=== PATIENT | female | born 1970 | race Caucasian/White ===

== ENCOUNTER 2021-03-05 14:01 | Outpatient (REF) | payer BC, SELFPAY ==
[2021-03-05 15:29] LABS: COVID-19 Test Negative (Negative)
== END 2021-03-05 14:02 | disposition home or self-care (01) ==
LOC: HO.LAB 14:01
PROVIDERS: Visit Provider Internal Medicine
DX: Z20.822 Contact with and (suspected) exposure to COVID-19 (principal)
CPT/HCPCS: 36415; 87635; C9803

== ENCOUNTER 2025-01-28 14:06 | Outpatient (AMB) | payer BC, SELFPAY ==
--- NOTE | 2025-01-28 14:12 | A.PHYSOV ---
Vital Signs 01/28/25 14:13 Height 5 ft Weight 125 lb BMI 24.4 Intake Visit Reasons: NPV Mirian Ref- chronic b/l thoracic back pain Intake Note: Patient is a 34 year old female here for new patient visit. Patient is being referred for chronic thoracic back pain. Human Resource Analyst Required: No Allergies Penicillins Allergy (Unknown, Verified 01/28/25 14:17) Unknown Sulfa (Sulfonamide Antibiotics) Allergy (Unknown, Verified 01/28/25 14:17) Unknown sulfamethoxazole (From Bactrim) Allergy (Unknown, Verified 01/28/25 14:17) Unknown trimethoprim (From Bactrim) Allergy (Unknown, Verified 01/28/25 14:17) Unknown HPI Comments Details: History of Present Illness The patient is a 54 year old individual presenting for evaluation of chronic back pain. The patient reports the onset of constant, central back pain since at least June, with no prior history of back problems or injury. The patient speculates that recent weight gain or poor posture while sitting on the couch for extended periods may have contributed to the pain. Pain is reported to improve with activity such as bike riding and walking. The patient has tried using a heating pad, Aleve, Advil, and a new firm mattress with persistent symptoms. The primary care provider prescribed a muscle relaxer, which the patient uses sparingly on weekends and finds helpful in conjunction with heat and a topical gel. Previous workup includes a spinal X-ray which was negative and an MRI that showed a disc bulge. The patient also underwent over a month of physical therapy, which provided temporary relief for a couple of days at a time, and received dry needling on a couple of occasions, which also seemed to alleviate symptoms somewhat. I reviewed the referring provider's no prior to consultation. Pain Description - Onset: The pain started prior to or during June and has been constant since. - Location: The pain is primarily located in the central back, sometimes felt slightly to the left. - Character: The pain is described as constant. - Aggravating factors: The patient reports increased pain with twisting. - Relieving factors: Movement, such as bike riding and walking, provides relief. - Associated factors: The patient has tried heat, Aleve, and a muscle relaxer with some effect; dry needling also provided some relief. [facility] Social History (Updated 01/28/25 @ 14:19 by Christine Jackson MA) Alcohol intake: current Alcohol intake frequency: a few times a week Alcohol type: wine Patient Tobacco Use Status: Never used Tobacco Review of Systems Narrative Review of Systems - Musculoskeletal: Reports constant central back pain. - General: Denies any other significant health issues, stating the patient has been relatively really healthy. Physical Exam Exam Exam: Physical Exam Cervical Spine: Nontender to palpation. Full range of motion. Thoracic spine: She is tender to the left paraspinal musculature with hypertrophy of the left side as opposed to the right. She has full range of motion of the thoracic spine her chest rises and falls symmetrically. No scapular winging. Special Tests: Axial Compression test: Negative Spurlings test: Negative Lhermitte's sign is Negative Upper Extremities: Neuro: Sensation: Intact to upper extremities bilateral to light touch Strength C5 (Elbow Flexion): 5/5 on the left and 5/5 on the right. C6 (Elbow Ext): 5/5 on the left and 5/5 on the right. C7 (Elbow Ext): 5/5 on the left and 5/5 on the right. C8 (Finger Flex): 5/5 on the left and 5/5 on the right. T1 (Finger Abd/Add): 5/5 on the left and 5/5 on the right. DTR: C5 (Biceps): Left 2 Right 2 C6 (Brachioradialis): Left 2 Right 2 C7 (Triceps): Left 2 Right 2 Cherry sign: Negative No pathologic clonus. No involuntary movement. Vital Signs: BMI result Body Mass Index 24.4 Assessment & Plan Assessment & Plan (1) Thoracic radiculopathy: Code(s): M54.14 - Radiculopathy, thoracic region Category: Medical (2) Myalgia: Code(s): M79.10 - Myalgia, unspecified site Category: Medical Plan Pain Management - Affect: The patient reports the persistence of the back pain has been surprising and has stopped me in my tracks a little bit. - Analgesia: The patient uses kxra-nwc-jwhdyqw medications such as Aleve and Advil, as well as a prescription muscle relaxer, which is taken infrequently (e.g., on a Sunday night) to help with sleep and relaxation. - Activities of Daily Living: The pain is constant, but the patient remains relatively active, noting that movement like walking and bike riding is beneficial. - Aberrant Drug Related Behaviors: The patient expresses a dislike for taking prescription medications and uses the prescribed muscle relaxer sparingly. Plan Patient was informed and verbally consented to the use of an ambient scribe for clinic note documentation during this visit. 1. Thoracic Back Pain The patient's chronic thoracic back pain is likely multifactorial, potentially stemming from myofascial pain secondary to scoliosis and a disc bulge at T8-T9. Two procedural options were discussed: a trigger point injection for muscular pain and an epidural steroid injection for disc-related pain. Given that the patient experienced some relief with dry needling, a trigger point injection was recommended as the less invasive initial approach. The patient agreed to this plan but opted to schedule the procedure for a later date to avoid post-injection soreness during the . She will follow-up at an appropriate interval. Continue her home exercise plan. We discussed the benefits of proper nutrition and exercise to maintain a healthy body weight to improve longevity and function. We also discussed the benefits of proper lifting techniques, core strengthening and proper posture. Thank you for allowing me to participate in the care of your patient. Coding Level of Care Code Tele New Pt Level 3 (43272) Diagnoses Thoracic radiculopathy M54.14 Myalgia M79.10
[2025-01-28 14:13] VITALS: BMI 24.4
--- OUTSIDE RECORDS SUMMARY | 2025-01-28 17:07 | XMS_ITS | Clinical Summary ---
Author Organization [facility] Address [address] [place] [phone] Phone Care Team Providers Care Manager Product Design Name Role Phone Kaela Mcfarland MD Primary Care Prov ider Allergies Active Allergy Reactions Criticality Noted Date Comments Sulfamethoxazole-Trimethoprim 2022 Penicillins 08/31/2022 Sulfa (Sulfonamide Antibiotics) 08/04 Medications lisinopril (PRINIVIL,ZESTRI L) 5 MG tablet Take 5 mg by mouth daily. Active albuterol 90 mcg/actuation inhaler Inhale 2 puffs into the lungs every 6 (six) hours as needed. 8.5 g 08/31/2022 Active Social History Tobacco Use Types Packs/Day Years Used Date Smoking Tobacco: Never Smokeless Tobacco: Never Education Answer Date Recorded Are you interested in more education? Not on vishnu e 08/31/2022 Are you concerned about learning? Not on file 08/31/2022 No 08/31/2022 No 08/31/2022 Digital Access Answer Date Recorded No 08/31/2022 No 08/31/2022 Reliable internet access at home? Not on file 08/31/2022 Device with a working camera? Not on file Comments Unknown Sex and Gender Information Value Date Recorded Sex Assigned at Not on file Legal Sex Female 9:37 AM EDT Gender Identity Not on file Sexual Orientation Not on file Last Filed Vital Signs Vital Sign Reading Time Taken Comments Blood Pressure 125/84 08/31/2022 9:58 AM EDT Pulse 78 08/31/2022 9:58 AM EDT Temperature 36.9 C (98.5 F) 08/31/2022 9:58 AM EDT Respiratory Rate 16 08/31/2022 9:58 AM EDT Oxygen Saturation 98% 08/31/2022 9:58 AM EDT Inhaled Oxygen Concentration - - Weight 57.3 kg (126 lb 6.4 oz) 08/31/2022 9:58 A M EDT Height 154.9 cm (5' 1 ) 08/31/2022 9:58 AM EDT Body Mass Index 23.88 08/31/2022 9:58 AM EDT Plan of Treatment Health Maintenance Due Date Last Done Comments CREATININE LEVEL 1968 LIPID PANEL 1968 POTASSIUM LEVEL 1968 DEPRESSION SCREENING 1980 HEPATITIS C SCREENING 1986 HIV ONE-TIME SCREENING (18-6 5 YEARS) 1986 PAP SMEAR 1989 MAMMOGRAM 2008 COLOGUARD 2013 COLONOSCOPY 2013 COLORECTAL CANCER SCREENING 2013 FIT TEST 2013 FOBT 2013 SIGMOIDOSCOPY 2013 VIRTUAL COLONOSCOPY 2013 PNEUMOCOCCAL VACCINES (50+ years) (1 of 1 - PCV) 2018 ZOSTER VACCINES (1 of 2) 2018 INFLUENZA VACCINE (#1) 2024 COVID-19 VACCINE (2024-2 6 season) 2024 12/22/2020, 06/05/2020, 05/15/2020 Adult Td,Tdap Booster 08/04/2025 08/05/2015 , 06/01/2010 RSV VACCINE (1 - 1-dose 75+ series) 2043 SMOKING STATUS SCREENING (On ce After 26 Yrs) Completed 08/31/2022 HEPATITIS A VACCINES Aged Out No long er eligible based on patient's age to complete this topic HIB VACCINES Aged Out No longer eligi ble based on patient's age to complete this topic MENINGOCOCCAL VACCINES (ACWY) Aged Out No longer eligible based on patient's age to complete this topic MENINGOCOCCAL VACCINES (B) Aged Out N o longer eligible based on patient's age to complete this topic Medical Devices Not on file Insurance BLUE CROSS OUT OF STATE PPO BLUE CROSS OUT OF STATE PPO BLUE CROSS OUT OF STATE PPO BLUE CROSS OUT OF STATE PPO BLUE CROSS OUT OF STATE PPO BLUE CROSS OUT OF STATE PPO Care Teams Manager Product Design Relationship Specialty Start Date End Date Kaela Mcfarland MD [address] [place] [phone] PCP - General Internal Medicine 08/31/22 Additional Source Comments The information contained in this document represents components of the legal health record. It is not the complete legal health record.[facility]
--- OUTSIDE RECORDS SUMMARY | 2025-01-28 17:07 | XMS_ITS | Clinical Summary ---
Author Organization [employer] Address [address] [place] [address] Care Team Providers Care Iron Setter Name Role Phone Unavailable Primary Care Provider Unavailabl e Allergies Active Allergy Reactions Criticality Noted Date Comments Penicillins Rash Low 08/31/2022 Sulfa Antibiotics Rash Low 08/31/2022 Sulfamethoxazole-Trimethoprim Rash Low 2022 Medications lisinopril 5 MG tablet Take 5 mg by mouth Once per day. Active albuterol 108 (90 Base) MCG/ACT inhaler Inhale 2 puffs every 6 (six) hours if needed. 08/31/2022 Active Active Problems Problem Noted Date Diagnosed Date Primary hypertension 12/03/2023 Immunizations Immunization Administration Dates Next Due TD (adult), 2 Lf tetanus tox oid, preservative free, adsorbed 08/05/2015 Tdap 06/01/2010 Social History Tobacco Use Types Packs/Day Years Used Date Smoking Tobacco: Never Smokeless Tobacco: Never Tobacco Cessation:Counseling Given: Not Answered Alcohol Use Standard Drinks/Week Comments Yes 4 (1 standard drink = 0.6 oz pur e alcohol) on weekends Education Answer Date Recorded What is the highest level of school you have completed or the highest degree you have received? Master's degree (e.g., MA, MS, Flavia, MEd, FINANCIAL REPORTING DIRECTOR, FELIBERTO) 12/03/2023 Comments Unknown Sex and Gender Information Value Date Recorded Sex Assigned at Female 12/03/2023 8:21 AM EDT Legal Sex Female 8:33 PM EDT Gender Identity Female 12/03/2023 8:21 AM EDT Sexual Orientation Choose not to disclose 2023 8:28 AM EDT Occupation Industry Job Start Date Job End Date Teacher Not on file Not on file Not on file Last Filed Vital Signs Vital Sign Reading Time Taken Comments Blood Pressure 132/86 12/03/2023 8:23 AM EDT Pulse 105 12/03/2023 8:23 AM EDT Temperature 36.9 C (98.4 F) 12/03/2023 8:23 AM EDT Respiratory Rate 18 12/03/2023 8:23 AM EDT Oxygen Saturation 99% 12/03/2023 8:23 AM EDT Inhaled Oxygen Concentration - - Weight 57.2 kg (126 lb) 12/03/2023 8:23 AM EDT Height 152.4 cm (5') 12/03/2023 8:23 AM EDT Body Mass Index 24.61 12/03/2023 8:23 AM EDT Plan of Treatment Health Maintenance Due Date Last Done Comments CT Colonography 1968 Colonoscopy 1968 Colorectal Cancer Screening 1968 Depression Screening 1968 FIT DNA/Cologuard 1968 FIT 1968 FOBT 1968 HIV Screening 1968 Lipid Panel 1968 SDOH Screening 1968 Sigmoidoscopy 1968 Disability Screening 1968 Alcohol/Substance Use Screening 1980 Hepatitis C Screening 1986 Hepatitis B Vaccines (1 of 3 - 19+ 3-dose series) 1987 Pap Smear 1989 Cervical Cancer Screening 1998 HPV/Cotest 1998 Mammogram 2008 Pneumococcal Vaccine: 50+ Years (1 of 1 - PCV) 2018 Zoster Vaccines (1 of 2) 2018 COVID-19 Vaccine (4 - 2024-2 6 season) 2024 12/22/2020, 06/05/2020, 05/15/2020 Influenza Vaccine (#1) 2024 Tobacco Screening 12/02/2024 12/03/2023 DTaP/Tdap/Td Vaccines (3 - T d or Tdap) 08/04/2025 08/05/2015, 06/01/2010 RSV Patients and Patients Aged 60 years or older (1 - 1-dose 75+ series) 2043 HIB Vaccines Aged Out No longer eligi ble based on patient's age to complete this topic HPV Vaccines Aged Out No longer eligi ble based on patient's age to complete this topic Hepatitis A Vaccines Aged Out No long er eligible based on patient's age to complete this topic IPV Vaccines Aged Out No longer eligi ble based on patient's age to complete this topic Meningococcal B Vaccine Aged Out No l onger eligible based on patient's age to complete this topic Meningococcal Vaccine Aged Out No andi nitza eligible based on patient's age to complete this topic RSV under 20 months Aged Out No longe r eligible based on patient's age to complete this topic Rotavirus Vaccines Aged Out No longer eligible based on patient's age to complete this topic Insurance BS PPO Care Teams Iron Setter Relationship Specialty Start Date End Date [facility] [address] [place] [id number] Primary Care Provider 12/03/23
== END 2025-01-28 14:36 | disposition home or self-care (01) ==
LOC: HO.HPHYS 14:06
PROVIDERS: PCP Internal Medicine; Visit Provider Physician Assistant
DX: M54.14 Radiculopathy, thoracic region (principal); M79.10 Myalgia, unspecified site
CPT/HCPCS: 99203

== ENCOUNTER 2025-02-18 14:51 | Outpatient (AMB) | payer BC, SELFPAY ==
[2025-02-18 14:55] VITALS: BMI 23.4
--- NOTE | 2025-02-18 14:55 | A.PHYSOV ---
Vital Signs 02/18/25 14:55 Height 5 ft Weight 120 lb BMI 23.4 Intake Visit Reasons: Trigger point injections Intake Note: Patient is a 54 year old female here for Trigger point injections. Windsmith Required: No Allergies Penicillins Allergy (Unknown, Verified 02/18/25 15:00) Unknown Sulfa (Sulfonamide Antibiotics) Allergy (Unknown, Verified 02/18/25 15:00) Unknown sulfamethoxazole (From Bactrim) Allergy (Unknown, Verified 02/18/25 15:00) Unknown trimethoprim (From Bactrim) Allergy (Unknown, Verified 02/18/25 15:00) Unknown [facility] Social History Alcohol intake: current Alcohol intake frequency: a few times a week Alcohol type: wine Patient Tobacco Use Status: Never used Tobacco Physical Exam Vital Signs: BMI result Body Mass Index 23.4 Office Procedures AMB Trigger Point Inject - Phy Therapeutic Injection Details: Trigger point injection left thoracic paraspinal musculature x2 : Patient was educated about the risks, complications and benefits of trigger point injection. Risks and complications include infection, nerve damage, bleeding, collapsed lung. After discussing these risks complications and benefits the patient is eager to proceed. The patient's left thoracic paraspinal muscle spasm was marked cleansed with an alcohol prep. 1 mL of 1% lidocaine was injected into the trigger point with needling. Patient tolerated the procedure well without immediate complication. The procedure was repeated on the 2nd trigger point in the same area. [id number] Point Injection 1 or 2 sites All charges added?: Procedure code (CPT) selection complete Office Meds lidocaine (PF) 20 mg/mL (2 %) injection solution Performing Provider: DOROTHY Nunes Performing Location: [facility] Administered by: DOROTHY Nunes on 02/18/25 17:08 Dose Route Admin Location Dispensed Lot Number Expiration Date [facility] Adjunct Trainer 20 mg IM 5 mL [id number] [facility] Total Dispensed Waste 5 mL 80 % Assessment & Plan Assessment & Plan (1) Myalgia: Code(s): M79.10 - Myalgia, unspecified site Category: Medical Plan Ms. Pearson is a 54-year-old female seen in evaluation today for thoracic paraspinal muscle spasm. Today she consented to trigger point injection x2. She was given post-injection instructions, recommend: Moist heat compresses for 15 minutes up to 5 times daily. Continue thoracic strengthening. If her symptoms do not markedly improved she may benefit from left-sided thoracic facet injection. Patient will contact our office if she would like to proceed. Thank you for allowing me to participate in the care of your patient. Orders: Orders AMB Trigger Point Injection - Physiatry Today M79.10 - Myalgia, unspecified site Coding Level of Care Code Procedure Only Diagnoses Myalgia M79.10 CPT Codes Therapeutic Injection - Ther Injection 1: [id number] Point Injection 1 or 2 sites ([id number])
--- OUTSIDE RECORDS SUMMARY | 2025-02-18 19:47 | XMS_ITS | Clinical Summary ---
Author Organization [facility] Address [address] [facility] [address] [place] [phone] Phone Care Team Providers Care Resources Representative Name Role Phone Kaela Donovan MD Primary Care Prov ider Allergies Active [...] 2018 INFLUENZA VACCINE (#1) 2024 COVID-19 VACCINE ( - 2024-2 6 season) 2024 12/22/2020, 06/05/2020, 05/15/2020 Adult [...] CROSS OUT OF STATE PPO Care Teams Resources Representative Relationship Specialty Start Date End Date Kaela Donovan MD [address] [place] [address] PCP - General Internal Medicine 08/31/22 Additional Source Comments The information contained in this document represents components of the legal health record. It is not the complete legal health record.[facility]
--- OUTSIDE RECORDS SUMMARY | 2025-02-18 19:47 | XMS_ITS | Clinical Summary ---
Author Organization [address] Address [address] [place] [phone] Phone Care Team Providers Care Cable Ferryboat Operator Name Role Phone Kaela Donovan MD Primary Care Prov ider Allergies Active Allergy Reactions Criticality Noted Date Comments Penicillins Medium 06/01/2010 Other Reaction(s): Rash/Dermatitis Sulfa (Sulfonamide Antibiotics) Medium 06/01/2010 Other Reaction(s): Rash/Dermatitis Sulfamethoxazole-Trimethopri m 07/05/2011 Medications lisinopriL (PRINIVIL,ZESTR IL) 10 mg tablet Take 1 tablet (10 mg total) by mouth 1 (one) time each day. 90 each 1 5 Active lisinopriL (PRINIVIL,ZESTR IL) 10 mg tablet Take 1 tablet (10 mg total) by mouth 1 (one) time each day. 90 each 5 02/06/20 25 Discontinu ed(Reorder ) Active Problems Problem Noted Date Diagnosed Date Chronic bilateral thoracic back pain 12/16/2024 Assessment & Plan (12/16/2024 9:19 AM EDT): Patient is encouraged to walk and return to their daily activity as soon as possible. Imaging studies were sent as shown. At this time patient is not experiencing any issues with bowels or bladder function. Patient is advised to continue back exercises. She completed PT with no improvement. Given a prescription for cyclobenzaprine, possible side effects discussed today. Orders: MR Thoracic Spine wo Contrast; Future Hyperlipidemia 09/20/2023 Abnormal mammogram 04/26/2023 Overview (04/26/2023): ? cysts left breast Family history of primary IgA nephropathy 2023 History of kidney stones 04/26/2023 History of COVID-19 02/10/2023 Overview (04/26/2023): second time having COVID 01/13/2022 Elevated alkaline phosphatase level 12/11/2016 Essential hypertension 08/26/2015 Assessment & Plan (12/16/2024 9:19 AM EDT): Currently on Lisinopril 5mg, however BP today elevated. Will increase the dose to 10mg and follow up in one month. Low salt recommended. Assessment & Plan (09/25/2024 4:26 PM EDT): Well controlled, today 120/80. Patient is compliant with her medication. Encouraged to follow a healthy diet, and exercise regularly. We will continue lisinopril 5mg a day. She has pending repeat CMP and lipid panel. Assessment & Plan (03/27/2024 1:53 PM EST): Well controlled, today 128/82. Patient is compliant with her medication. Encouraged to follow a healthy diet, and exercise regularly. We will continue 5mg a day. We will check a CMP and lipid profile before her next visit. Orders: Comprehensive metabolic panel; Future Lipid panel with reflex to direct LDL; Future Encounters Date Type Department Care Team Description 02/05/2025 1:15 PM EST Office Visit [address] [phone] Acacia Ballard PA Essential hypertension (Primary Dx); Pure hypercholesterolemia 01/02/2025 Results Follow-Up Adult Medicine [address] [phone] Kaela Sullivan MD 12/28/2024 7:06 AM EDT - 12/28/2024 11:59 PM EDT [facility] [address] [place] [address] Chronic bilateral thoracic back pain Discharge Disposition: Home or Self Care 12/16/2024 8:30 AM EDT Office Visit [address] [phone] Kaela Sullivan MD Chronic bilateral thoracic back pain (Primary Dx); Essential hypertension 12/10/2024 4:00 PM EDT Treatment Outpatient [address] [phone] Zuleyma Leal, LIBRARY CLERICAL ASSISTANT Chronic bilateral thoracic back pain (Primary Dx) 12/04/2024 4:00 PM EDT Treatment Outpatient [address] [phone] Julio Correa, PT Chronic bilateral thoracic back pain (Primary Dx) 12/01/2024 4:00 PM EDT Treatment Outpatient [address] [phone] Zuleyma Leal, LIBRARY CLERICAL ASSISTANT Chronic bilateral thoracic back pain (Primary Dx) 11/27/2024 4:00 PM EDT Treatment Outpatient [address] [phone] Julio Correa, PT Chronic bilateral thoracic back pain (Primary Dx) 11/24/2024 4:00 PM EDT Treatment Outpatient [address] [phone] Julio Correa, PT Chronic bilateral thoracic back pain (Primary Dx) 11/20/2024 4:00 PM EDT Treatment Outpatient Rehabilitation [address] [phone] Azalea Christopher PTA Chronic bilateral thoracic back pain (Primary Dx) from Last 3 Months Immunizations Immunization Administration Dates Next Due Pneumococcal conjugate 20 va lent (Prevnar 20, PCV 20) 2mo and older 09/24/2024 Td Tetanus diptheria (Tdvax) 7yo and older 08/04 Tdap Tetanus diptheria acell ular pertussis (Boostrix; Adacel) 7yo and older 06/01/2010 Surgical History Surgery Date Site/Laterality Comments KIDNEY STONE SURGERY PROCEDURE: DC NEPHROLITHOTOMY REMOVAL CALCULUS; COMMENT: Dr. Camara VARICOSE VEIN SURGERY 2015 PROCEDURE: DC LIGJ DIVJ &/EXCJ VARICOSE VEIN CLUSTER 1 LEG; COMMENT: Dr Wade ENDOMETRIAL ABLATION 10/09/2018 PROCEDURE: DC ENDOMETRIAL ABLTJ THERMAL W/O HYSTEROSCOPIC GUID Medical History Medical History Date Comments Pneumonia 12/03/2008 DX:Pneumonia; CO MMENT: secondary to influenza. Hospitalized at [facility]. UTI (lower urinary tract infection) 12/03/2008 DX:UTI (lower urinary tract infection); COMMENT: during pneumonia. Sepsis, unspecified 12/03/2008 DX:Sepsis, u nspecified; COMMENT: secondary to pneumonia. Hospitalized at [facility]. Abnormal mammogram DX:Abnormal m ammogram; COMMENT: ? cysts left breast Varicosities DX:Varicosities History of COVID-19 02/10/2023 DX:History o f COVID-19; COMMENT: second time having COVID 01/13/2022 Family History Medical History Relation Name Comments Hypertension Brother 1 Other: iga nephropathy Daughter 1 Prostate cancer Father mets now 67, Macular degeneration Mother Glaucoma Paternal Grandmother Relation Name Status Comments Brother 1 Brother 2 Alive Elvin 44 Brother 3 Alive Christopher 40 Daughter 1 Alive Becky 13 Daughter 2 Alive Ludy 10 Father Mother Alive Paternal Grandmother Social History Tobacco Use Types Packs/Day Years Used Date Smoking Tobacco: Never Smokeless Tobacco: Never Tobacco Cessation:Counseling Given: Not Answered Alcohol Use Standard Drinks/Week Comments Yes 0 (1 standard drink = 0.6 oz pur e alcohol) Housing Instability Answer Date Recorde d Are you worried that in the next 2 months you may not have stable housing? No 02/05/2025 Food Access & Nutrition Answer Date Rec orded Do you have access to a vari ety of food including fruits and vegetables? Yes 02/05/2025 Access to Healthcare Answer Date Record ed Within the last 3 months, ho w many times did you visit the emergency department for your medical care? 0 03/27/2024 Health Literacy Answer Date Recorded How often do you need to hav e someone help you when you read instructions, pamphlets, or other written material from your doctor or pharmacy? Never 02/05/2025 Caregiver: How often do you need to have someone help you when you read instructions, pamphlets, or other written material from your doctor or pharmacy? Not on file 02/05/2025 Financial Risk Answer Date Recorded How hard is it for you to pa y for the very basics like food, housing, medical care, and air conditioning / heating? Not very hard 02/05/2025 Transportation Answer Date Recorded Has the lack of transportati on kept you from meetings, work, or from getting things needed for daily living? No Has the lack of transportati on kept you from medical appointments or from getting medications? No 02/05/2025 Social Isolation Answer Date Recorded How often do you feel lonely or isolated from th ose around you? Never 02/05/2025 Food Risk Answer Date Recorded Within the past 12 months we worried whether our food would run out before we got money to buy more. Never true 03/27/2024 Within the past 12 months th e food we bought just didn't last and we didn't have money to get more. Never true 03/27/2024 Dependent Care Answer Date Recorded Do you need help finding or paying for care for your loved ones. For example, administrator health care facility or elderly care for an older adult? No 02/05/2025 Education Answer Date Recorded Do you think completing more education or training, like finishing a GED, going to college, or learning a trade, would be helpful for you? No 02/05/2025 Employment and Income Answer Date Recor ded During the last four weeks, have you been actively looking for work? No 02/05/2025 Living Situation Answer Date Recorded What is your living situation? Unrecognized valu e 02/05/2025 Comments No Sex and Gender Information Value Date Recorded Sex Assigned at Female 09/17/2024 11:22 AM EDT Legal Sex Female 2:19 AM EST Gender Identity Female 09/17/2024 11:22 AM EDT Sexual Orientation Not on file Last Filed Vital Signs Vital Sign Reading Time Taken Comments Blood Pressure 130/84 02/05/2025 1:28 PM EST Pulse 101 02/05/2025 1:28 PM EST Temperature 36.2 C (97.2 F) 02/05/2025 1:28 PM EST Respiratory Rate 15 02/05/2025 1:28 PM EST Oxygen Saturation 97% 02/05/2025 1:28 PM EST Inhaled Oxygen Concentration - - Weight 56.2 kg (124 lb) 02/05/2025 1:28 PM EST Height 152.4 cm (5') 02/05/2025 1:28 PM EST Body Mass Index 24.22 02/05/2025 1:28 PM EST Plan of Treatment Upcoming Encounters Date Type Department Care Team (Late st Contact Info) Description 09/21/2025 2:00 PM EDT Office Visit Adult Medicine [address] [phone] Kaela Donovan MD [address] [place] [address] Health Maintenance Due Date Last Done Comments Hepatitis B Vaccines (1 of 3 - 19+ 3-dose series) 1987 Zoster Vaccines (1 of 2) 2018 HIV Screening 02/11/2022 Hypertension/CHF/CAD Annual BMP Blood Test 09/19/2024 09/20/2023 Breast Cancer Screening 03/19/2025 03/19/19, 03/19/2024 DTaP,Tdap,and Td Vaccines (3 - Td or Tdap) 08/04/2025 08/05/2015, 06/01/2010 Social Influencers of Health Screening 02/05/2026 02/05/2025 Cervical Cancer Screening: Pap Smear 05/01/2027 05/01/2022, 05/01/2022, 03/29/2021 Cholesterol Screening (Lipid Panel) 09/19/2028 09/20/2023, 03/01/2023 Colorectal Cancer Screening: Colonoscopy 04/21/2029 04/21/2019 RSV Immunization Adult Patients (1 - 1-dose 75+ series) 2043 COVID-19 Vaccine Discontinued 12/22/2020, 06/05/2020, 05/15/2020 Hepatitis C Screening Completed 03/01/2023 Pneumococcal Vaccine: 50+ Years Completed 09/24/2024 Depression Screening Completed 02/05/2025 HIB Vaccines Aged Out No longer eligi [...] on patient's age to complete this topic Influenza Vaccine Discontinued MMR Vaccines Aged Out No longer eligi ble based on patient's age to complete this topic Meningococcal ACWY Vaccine Aged Out N o longer eligible based on patient's age to complete this topic Meningococcal B Vaccine Aged Out No l onger eligible based on patient's age to complete this topic RSV Immunization Patients Under 20 months Aged Out No longer eligible based on patient's age to complete this topic Varicella Vaccines Aged Out No longer eligible based on patient's age to complete this topic Goals Goal Patient Goal Type Associated Problems Recent Progress Patient-Stated? Author LTG's 12 visits General Yes Julio Correa, PT Note: Pt will report no thoracic spine pain after performing daily activities. Pt will demonstrate a 1 or better increase in scap stabilizer, core and LE strength to increase tolerance to activities. Pt will I demonstrate proper technique for sup<->sit transfers in 5/5 trials. Pt will be Independent and compliant with final HEP. Procedures Procedure Name Priority Date/Time Associated Diagnosis Comments MR THORACIC SPINE WO CONTRAST Routine 12/28/2024 8:14 AM EDT Chronic bilateral thoracic back pain MG MAMMO DIGITAL SCREENING BILAT Routine 03/19/2024 2:04 PM EST HEPATITIS C SCREENING Routine 03/01/2023 LIPID PANEL Routine 03/01/2023 EXTERNAL PAP SMEAR Routine 05/01/2022 2: 02 PM EST COLONOSCOPY Routine 04/21/2019 from Last 3 Months or Most Recently Relevant to Health Maintenance Results * MR Thoracic Spine wo Contrast (12/28/2024 8:14 AM EDT) Anatomical Region Laterality Modality T-spine, Spine Magnetic Resonan ce 01/01/2025 11:2 3 AM EDT Impressions 01/01/2025 12:15 PM EDT Mild degenerative disc and facet changes throughout the thoracic spine without significant foraminal or spinal canal stenosis. -------- FINAL REPORT -------- Dictated By: REINIER HUYNH Dictated Date: 01/01/2025 11:23 ET Assigned Physician: REINIER HUYNH Reviewed and Electronically Signed By: REINIER HUYNH Signed Date: 01/01/2025 12:15 ET Workstation ID: [id number] Transcribed By: Self Edit Transcribed Date: 01/01/2025 11:23 ET Narrative 01/01/2025 12:15 PM EDT PROCEDURE: Thoracic spine MRI INDICATION: Pain TECHNIQUE: Multiplanar, multisequence MRI of the thoracic spine Without contrast. COMPARISON: No priors available. FINDINGS: Dextroconvex thoracic curvature. Thoracic kyphosis is maintained. No fracture or suspicious marrow replacing lesion. Multilevel degenerative loss of normal disc height and signal with associated degenerative discogenic endplate changes. Small posterior protrusions are seen at several levels throughout the thoracic spine. Largest disc abnormality is a small left paracentral protrusion is noted at T8-9 without spinal stenosis or mass effect upon the cord. No spinal canal stenosis, mass effect upon the cord, or cord signal abnormality. Mild degenerative facet arthritis throughout the thoracic spine without significant foraminal stenosis. No epidural collection or mass within the spinal canal. The visualized intrathoracic and upper abdominal structures are within normal limits. Paraspinal muscles are normal. No paraspinal mass or fluid collection. Procedure Note Reinier Huynh MD - 01/01/2025 PROCEDURE: Thoracic spine MRI INDICATION: Pain TECHNIQUE: Multiplanar, multisequence MRI of the thoracic spine Withoutcontrast. COMPARISON: No priors available. FINDINGS: Dextroconvex thoracic curvature. Thoracic kyphosis is maintained. No fracture or suspicious marrow replacing lesion. Multilevel degenerative loss of normal disc height and signal withassociated degenerative discogenic endplate changes. Small posterior protrusions are seen at several levels throughout thethoracic spine. Largest disc abnormality is a small left paracentralprotrusion is noted at T8-9 without spinal stenosis or mass effect uponthe cord. No spinal canal stenosis, mass effect upon the cord, or cord signalabnormality. Mild degenerative facet arthritis throughout the thoracic spine withoutsignificant foraminal stenosis. No epidural collection or mass within the spinal canal. The visualized intrathoracic and upper abdominal structures are withinnormal limits. Paraspinal muscles are normal. No paraspinal mass or fluid collection. IMPRESSION: Mild degenerative disc and facet changes throughout the thoracic spinewithout significant foraminal or spinal canal stenosis. -------- FINAL REPORT -------- Dictated By: REINIER HUYNH Dictated Date: 01/01/2025 11:23 ET Assigned Physician: REINIER HUYNH Reviewed and Electronically Signed By: REINIER HUYNH Signed Date: 01/01/2025 12:15 ET Workstation ID: [id number] Transcribed By: Self Edit Transcribed Date: 01/01/2025 11:23 ET Result [facility] Kaela Donovan MD IM MRI PROCEDURES Final Result * MG Mammo Digital Screening bilat (03/19/2024 2:04 PM EST) Anatomical Region Laterality Modality Breast Bilateral Mammography Historical Provider MD BUTLER BI PROCEDURES Final R esult * Hepatitis C Screening (03/01/2023) Pathologist [facility] Hepatitis C Screening Negative Result [facility] Historical Provider HEALTH MAINTENANCE Final Result * Lipid panel (03/01/2023) Pathologist [facility] LDL/HDL Ratio 3 Triglycerides 76 mg/dL Cholesterol 222 mg/dL HDL 65 mg/dL LDL Cholesterol 142 mg/dL Blood Venous blood specimen / Unknown Result [facility] Historical Provider LAB BLOOD ORDERABLES Dilcia l Result * External PAP smear (05/01/2022 2:02 PM EST) us Historical Provider LAB CYTOLOGY ORDERABLES F inal Result * Colonoscopy (04/21/2019) Colonoscopy Negative Anatomical Region Laterality Modality Other us Historical Provider HEALTH MAINTENANCE Final Result from Last 3 Months or Most Recently Relevant to Health Maintenance Insurance [place]) Care Teams Cable Ferryboat Operator Relationship Specialty Start Date End Date Kaela Donovan MD [address] [place] [address] PCP - General Internal Medicine 10/03/21
--- OUTSIDE RECORDS SUMMARY | 2025-02-18 19:47 | XMS_ITS | Encounter Summary ---
Author Organization [facility] [place] [address] Care Team Providers Care Legal Aid Name Role Phone Kaela Donovan MD Primary Care Prov ider Reason for Referral * Consultation (Routine) - Closed Specialty Diagnoses / Procedures Referred By Contact Referred To Contact Physical Medicine and Rehabilitation Diagnoses Chronic bilateral thoracic back pain Kaela Donovan MD [address] [place] [address] Phone: tel: fax: Bill Rossi DO [address] [facility] [address] [place] [address] Phone: tel:[phone] fax:[phone] Referral ID Status Reason Start Date Expiration Date V isits Requested Visits Authorized [id number] Closed Specialty Services Required 01/02/2025 01/02/2026 1 1 Encounter Details Date Type Department Care Team ([facility] st Contact Info) Description 01/02/2025 Results Follow-Up Adult Medicine [address] [phone] Kaela Donovan MD [address] [place] [address] Social History Tobacco Use Types Packs/Day Years Used Date Smoking Tobacco: Never Smokeless Tobacco: Never Alcohol Use Standard Drinks/Week Comments Yes 0 (1 standard drink = 0.6 oz pur e alcohol) Housing Instability Answer Date Recorde d Are you worried that in the next 2 months you may not have stable housing? No 03/27/2024 Food Access & Nutrition Answer Date Rec orded Do you have access to a vari ety of food including fruits and vegetables? Yes 03/27/2024 Access to Healthcare Answer Date Record ed Within the last 3 months, ho w many times did you visit the emergency department for your medical care? 0 03/27/2024 Health Literacy Answer Date Recorded How often do you need to hav e someone help you when you read instructions, pamphlets, or other written material from your doctor or pharmacy? Never 03/27/2024 Caregiver: How often do you need to have someone help you when you read instructions, pamphlets, or other written material from your doctor or pharmacy? Not on file 03/27/2024 Financial Risk Answer Date Recorded How hard is it for you to pa y for the very basics like food, housing, medical care, and air conditioning / heating? Hard 03/27/2024 Transportation Answer Date Recorded Has the lack of transportati on kept you from meetings, work, or from getting things needed for daily living? No Has the lack of transportati on kept you from medical appointments or from getting medications? No 03/27/2024 Social Isolation Answer Date Recorded How often do you feel lonely or isolated from th ose around you? Never 03/27/2024 Food Risk Answer Date Recorded Within the past 12 months we worried whether our food would run out before we got money to buy more. Never true 03/27/2024 Within the past 12 months th e food we bought just didn't last and we didn't have money to get more. Never true 03/27/2024 Education Answer Date Recorded Do you think completing more education or training, like finishing a GED, going to college, or learning a trade, would be helpful for you? No 03/27/2024 Employment and Income Answer Date Recor ded During the last four weeks, have you been actively looking for work? No 03/27/2024 Living Situation Answer Date Recorded What is your living situation? Unrecognized valu e 03/27/2024 Comments No Sex and Gender Information Value Date Recorded Sex Assigned at Female 09/17/2024 11:22 AM EDT Legal Sex Female 2:19 AM EST Gender Identity Female 09/17/2024 11:22 AM EDT Sexual Orientation Not on file documented as of this encounter Plan of Treatment Upcoming Encounters Date Type Department Care Team (Late st Contact Info) Description 09/21/2025 2:00 PM EDT Office Visit Adult Medicine [address] [phone] Kaela Donovan MD [address] [place] [address] Scheduled Referrals Name Type Priority Associated Diagnoses Order Schedule Ambulatory referral to Physical Medicine Rehab Outpatient Referral Routine Chronic bilateral thoracic back pain 1 Occurrences starting 01/02/2025 until 01/02/2026 documented as of this encounter Goals Goal Patient Goal Type Associated Problems [...] be Independent and compliant with final HEP. documented as of this encounter Visit Diagnoses Diagnosis Chronic bilateral thoracic back pain- Primary documented in this encounter Additional Health Concerns Assessment Noted Time PHQ-9 Depression Total Score: 0 09/18/19 25 11:33 AM EDT documented as of this encounter Care Teams Legal Aid Relationship Specialty Start Date End Date Kaela Donovan MD [address] [place] [address] PCP - General Internal Medicine 10/03/21 documented as of this encounter
--- OUTSIDE RECORDS SUMMARY | 2025-02-18 19:47 | XMS_ITS | Clinical Summary ---
Author Organization [employer] Address [address] [facility] [address] [place] [address] Care Team Providers Care Route Rider Name Role Phone Unavailable Primary Care Provider [...] Master's degree (e.g., MA, MS, Flavia, MEd, UROGYNECOLOGY PHYSICIAN, FELIBERTO) 12/03/2023 Comments Unknown Sex and Gender [...] this topic Insurance BS PPO Care Teams Route Rider Relationship Specialty Start Date End [facility] [address] [place] [id number] [phone] Primary Care Provider 12/03/23
== END 2025-02-18 15:20 | disposition home or self-care (01) ==
LOC: HO.HPHYS 14:51
PROVIDERS: PCP Internal Medicine; Visit Provider Physician Assistant
DX: M79.10 Myalgia, unspecified site (principal)
CPT/HCPCS: 20552

== ENCOUNTER → 2025-02-18 14:51 | Outpatient (BNVA) | payer BC, SELFPAY | PROVIDERS: PCP Internal Medicine; Visit Provider Physician Assistant | DX: M79.10 Myalgia, unspecified site (principal) | CPT/HCPCS: 20552; J2003 ==